=== PATIENT | female | born 1950 | race Caucasian/White ===

== ENCOUNTER → 2017-01-15 | Outpatient (CLI) | payer MEDICARE ==
--- NOTE | 2017-01-15 14:01 | BD ---
EXAMINATION TYPE: MG DEXA axial skeleton. DATE OF EXAM: 01/15/2017 CLINICAL HISTORY: Height: 65.25 Weight: 135 FRAX RISK QUESTIONS: Alcohol (3 or more units per day): no Family History (Parent hip fracture): no Glucocorticoids (More than 3mos): no (Ex: prednisone, prednisolone, methylprednisolone, dexamethasone, and hydrocortisone). History of Fracture in Adulthood: yes, wrists & left pelvis Secondary Osteoporosis: 1. Type 1 Diabetes: no 2. Hyperthyroidism: no 3. Menopause before 45: no 4. Malnutrition: no 5. Chronic liver disease: no Rheumatoid Arthritis: no Current Tobacco Use: no RISK FACTORS HISTORY OF: History of Wrist Fracture: yes both, at different times When: 2010 was last wrist fx Family History of Osteoporosis: no Active: yes Diet low in dairy products/other sources of calcium: no Postmenopausal woman: yes Take estrogen and/or progesterone medications: not now How long: hormonal contraceptives for about 14 years Lost more than 2 inches in height since high school: no Frequent falls: no Poor Health: no Hyperparathyroidism: no Adrenal Insufficiency: no MEDICATIONS: Prednisone or other steroids: no Thyroid Medications: no Osteoporosis Medications: not now Which medication: perhaps Fosamax How Long: about one month Additional Medications: calcium & vitamin EXAM MEASUREMENTS: Bone mineral densitometry was performed using the [employer]. Bone mineral density as measured about the Lumbar spine is: ----- L1-L4(G/cm2): 1.170 T Score Values are as follows: ----- L2: -1.0 ----- L3: 0.1 ----- L4: 0.7 ----- L1-L4: -0.1 Bone mineral density has: Decreased -2.5% since study of: 01/10/2015 Bone mineral density about the R hip (g/cm2): 0.735 Bone mineral density about the L hip (g/cm2): 0.821 T Score values are as follows: -----R Neck: -2.2 -----L Neck: -1.6 -----R Total: -3.1 -----L Total: -2.2 Bone mineral density has: Decreased -1.3% since study of: 01/10/2015 IMPRESSION: Osteoporosis (T Score less than -2.5) as noted by T Score values at the There is increased fracture risk and therapy is usually indicated based on age. Re-Screen 1-2 years. NOTE: T-SCORE=SD OF THE YOUNG ADULT MEAN.
--- NOTE | 2017-01-16 09:18 | MM ---
Reason for exam: screening (asymptomatic). Last mammogram was performed 1 year ago. History: Patient is postmenopausal, has history of other cancer at age 59, and is nulliparous. Family history of breast cancer in 2 maternal aunts and breast cancer in mother at age 50. Benign left mammotome panel of the left breast, January 08, 2011. Benign stereotactic core biopsy of the right breast, March 01, 2004. Excisional biopsy of the right breast, 1979. Took hormonal contraceptives for 14 years beginning at age 19. Physical Findings: A clinical breast exam by your physician is recommended on an annual basis and results should be correlated with mammographic findings. MG 3D Screening Mammo W/Cad Bilateral CC and MLO view(s) were taken. Prior study comparison: January 13, 2016, bilateral MG 3d screening mammo w/cad. January 10, 2015, bilateral MG screening mammo w CAD. The breast tissue is extremely dense which could obscure a lesion on mammography. Post biopsy change in the left and right breast. ASSESSMENT: Benign, BI-RAD 2 RECOMMENDATION: Routine screening mammogram of both breasts in 1 year.
== END | disposition home or self-care (01) ==
LOC: RADMAMWWP 10:12
PROVIDERS: ATTEND Obstetrics & Gynecology
DX: Z12.31 Encounter for screening mammogram for malignant neoplasm of breast (principal); Z80.3 Family history of malignant neoplasm of breast; M81.0 Age-related osteoporosis without current pathological fracture
CPT/HCPCS: 77080; 77063; G0202

== ENCOUNTER 2017-02-13 07:20 | Day surgery (SDC) | payer MEDICARE ==
[2017-02-08 12:02] VITALS: BMI 21.3
[~2017-02-13 07:20] MED LIST: LACTATED RINGERS 1,000 ML IV SCH; LIDOCAINE 1% 20 ML VIAL (10MG/ML) FOR IV START INTRADERMA PRN
[2017-02-13 07:50] VITALS: TEMP 96.4
[2017-02-13] MEDS ORDERED: PROPOFOL 10 MG/ML 20 ML VIAL IV ONE (07:52)
[2017-02-13] MEDS ORDERED: LIDOCAINE 1% INJ 10MG/ML (20 ML MDV) ONE (07:52)
--- NOTE | 2017-02-13 07:56 | P.GSHP ---
History of Present Illness H&P Date: 02/13/17 Chief Complaint: Colon cancer screening Patient here today for screening colonoscopy. Last colonoscopy 10 years ago. No bowel related complaints. No family history of colon cancer. Past Medical History Past Medical History: No Reported History History of Any Multi-Drug Resistant Organisms: None Reported Past Surgical History: Appendectomy, Breast Surgery Additional Past Surgical History / Comment(s): COLONOSCOPY. BILAT BREAST NEEDLE BIOPSY. LT BREAST BIOPSY Past Anesthesia/Blood Transfusion Reactions: Postoperative Nausea & Vomiting ( PONV) Smoking Status: Former smoker - Past Family History Mother Family Medical History: Cancer Medications and Allergies Home Medications Medication Instructions Recorded Confirmed Type Calcium Carb/Vitamin D3/Vit K1 1 tab PO DAILY 02/08/17 02/08/17 History [Citracal Soft Chew] Allergies Allergy/AdvReac Type Severity Reaction Status Date / Time No Known Allergies Allergy Verified 02/08/17 11:57 Surgical - Exam Vital Signs Temp Pulse Resp BP Pulse Ox 96.4 F L 67 14 164/72 96 02/13/17 07:48 02/13/17 07:48 02/13/17 07:48 02/13/17 07:48 02/13/17 07:48 Physical exam: General: Well-developed, well-nourished HEENT: Normocephalic, sclerae nonicteric Abdomen: Nontender, nondistended Extremities: No edema Neuro: Alert and oriented Assessment and Plan (1) Colon cancer screening Narrative/Plan: Will proceed with colonoscopy at this time. Current Visit: Yes Status: Acute Code(s): Z12.11 - ENCOUNTER FOR SCREENING FOR MALIGNANT NEOPLASM OF COLON SNOMED Code(s): 343554926
[2017-02-13 08:19] VITALS: RESP 16
[2017-02-13 08:50] VITALS: BP 128/60; PULSE 64
--- NOTE | 2017-02-13 09:05 | P.PCN ---
Date of Procedure: 02/13/17 Procedure(s) Performed: PREOPERATIVE DIAGNOSIS: Colon cancer screening POSTOPERATIVE DIAGNOSIS: Normal exam PROCEDURE: Colonoscopy ANESTHESIA: MAC SURGEON: Mina Esquivel M.D. SPECIMENS: None ENDOSCOPIC PROCEDURE: The patient was placed on the endoscopy table in the left decubitus position. The Olympus colonoscope was inserted into the anus and passed under direct visualization to the base of the cecum. The appendiceal orifice was visualized. From that point the scope was slowly withdrawn inspecting all surfaces carefully. There were no neoplastic inflammatory or polypoid lesions throughout the cecum, ascending, transverse, descending, sigmoid and rectum. There was no diverticulosis noted. Tortuosity of the colon was impressive. Digital rectal examination was normal. The patient was taken to the recovery room in stable condition per anesthesia guidelines. RECOMMENDATIONS: Increase fiber. Advise follow-up colonoscopy 10 years.
== END 2017-02-13 09:09 | disposition home or self-care (01) ==
LOC: ORWHC2ENDO 07:20
PROVIDERS: ATTEND Surgery
DX: Z12.11 Encounter for screening for malignant neoplasm of colon (principal); Q43.8 Other specified congenital malformations of intestine; Z87.891 Personal history of nicotine dependence
CPT/HCPCS: J2001; J2704; G0121; 45378

== ENCOUNTER → 2018-01-29 | Outpatient (CLI) | payer MEDICARE ==
--- NOTE | 2018-01-30 11:24 | MM ---
Reason for exam: screening (asymptomatic). Last mammogram was performed 1 year ago. History: Patient is postmenopausal, has history of other cancer at age 59, and is nulliparous. Family history of breast cancer in 2 maternal aunts and breast cancer in mother at age 50. Benign left mammotome panel of the left breast, January 08, 2011. Benign stereotactic core biopsy of the right breast, March 01, 2004. Excisional biopsy of the right breast, 1979. Took hormonal contraceptives for 14 years beginning at age 19. Physical Findings: A clinical breast exam by your physician is recommended on an annual basis and results should be correlated with mammographic findings. MG 3D Screening Mammo W/Cad Bilateral CC and MLO view(s) were taken. Prior study comparison: January 15, 2017, bilateral MG 3d screening mammo w/cad. January 13, 2016, bilateral MG 3d screening mammo w/cad. The breast tissue is extremely dense which could obscure a lesion on mammography. There is a new punctate calcification within an overall stable lower inner quadrant left breast mass. Ultrasound will be done to further assess. Benign appearing bilateral calcifications. No suspicious abnormality on the right breast. Bilateral biopsy markers noted. ASSESSMENT: Incomplete: need additional imaging evaluation, BI-RAD 0 RECOMMENDATION: Ultrasound of the left breast. (lower inner quadrant) [facility] will attempt to contact patient to return for ultrasound.
== END | disposition home or self-care (01) ==
LOC: RADMAMWWP 10:52
PROVIDERS: ATTEND Obstetrics & Gynecology
DX: Z12.31 Encounter for screening mammogram for malignant neoplasm of breast (principal); Z80.3 Family history of malignant neoplasm of breast
CPT/HCPCS: 77063; 77067

== ENCOUNTER → 2018-01-31 | Outpatient (CLI) | payer MEDICARE ==
--- NOTE | 2018-01-31 11:41 | USB ---
Reason for exam: additional evaluation requested from abnormal screening. History: Patient is postmenopausal, has history of other cancer at age 59, and is nulliparous. Family history of breast cancer in 2 maternal aunts and breast cancer in mother at age 50. Benign left mammotome panel of the left breast, January 08, 2011. Benign stereotactic core biopsy of the right breast, March 01, 2004. Excisional biopsy of the right breast, 1979. Took hormonal contraceptives for 14 years beginning at age 19. Physical Findings: Nurse did not find any significant physical abnormalities on exam. US Breast Workup Limited LT Left limited breast ultrasound including focal area of concern, retroareolar and axilla demonstrates a 0.7 x 0.6 x 0.6cm oval, solid lesion at 4 o'clock, questionable calcifications. This does not persist with harmonics and has no mammographic correlate. Possible prominent lobe. 6 month follow up recommended. These results were verbally communicated with the patient and result sheet given to the patient on 01/31/18. ASSESSMENT: Probably benign, BI-RAD 3 RECOMMENDATION: Follow-up diagnostic mammogram and ultrasound of the left breast in 6 months. (lower inner quadrant and lower outer quadrant)
--- NOTE | 2018-01-31 11:43 | MM ---
Reason for exam: additional evaluation requested from abnormal screening. Last mammogram was performed less than 1 month ago. History: Patient is postmenopausal, has history of other cancer at age 59, and is nulliparous. Family history of breast cancer in 2 maternal aunts and breast cancer in mother at age 50. Benign left mammotome panel of the left breast, January 08, 2011. Benign stereotactic core biopsy of the right breast, March 01, 2004. Excisional biopsy of the right breast, 1979. Took hormonal contraceptives for 14 years beginning at age 19. Physical Findings: Nurse did not find any significant physical abnormalities on exam. MG 3D Work Up W/Cad LT Spot compression CC, spot compression MLO, and LM view(s) were taken of the left breast. Prior study comparison: January 29, 2018, bilateral MG 3d screening mammo w/cad. January 15, 2017, bilateral MG 3d screening mammo w/cad. The breast tissue is heterogeneously dense. This may lower the sensitivity of mammography. Additional views with BB placement demonstrate no corresponding mammographic abnormality. 6 month follow up recommended for the lower inner quadrant calcification. These results were verbally communicated with the patient and result sheet given to the patient on 01/31/18. ASSESSMENT: Probably benign, BI-RAD 3 RECOMMENDATION: Follow-up diagnostic mammogram and ultrasound of the left breast in 6 months.
== END | disposition home or self-care (01) ==
LOC: RADUSWWP 09:44
PROVIDERS: ATTEND Obstetrics & Gynecology
DX: R92.8 Other abnormal and inconclusive findings on diagnostic imaging of breast (principal)
CPT/HCPCS: 77065; 76642; G0279; 77061

== ENCOUNTER → 2018-02-18 | Outpatient (CLI) | payer MEDICARE ==
--- NOTE | 2018-02-18 13:24 | US ---
EXAMINATION TYPE: US carotid duplex BILAT DATE OF EXAM: 02/18/2018 COMPARISON: NONE CLINICAL HISTORY: I65.23 Stenosis; I34.0 Non-Rheumatic valve insuffi. EXAM MEASUREMENTS: RIGHT: Peak Systolic Velocity (PSV) cm/sec ----- Right CCA: 53.6 ----- Right ICA: 58.8 ----- Right ECA: 67.6 ICA/CCA ratio: 1.1 RIGHT: End Diastole cm/sec ----- Right CCA: 10.9 ----- Right ICA: 20.8 ----- Right ECA: 0.0 LEFT: Peak Systolic Velocity (PSV) cm/sec ----- Left CCA: 59.6 ----- Left ICA: 92.7 ----- Left ECA: 66.8 ICA/CCA ratio: 1.1 LEFT: End Diastole cm/sec ----- Left CCA: 16.1 ----- Left ICA: 30.8 ----- Left ECA: 8.4 VERTEBRALS (direction of flow): Right Vertebral: Antegrade Left Vertebral: Antegrade Rhythm: Normal Mild plaque, no significant velocity elevations. IMPRESSION: There is mild peripheral plaque without significant stenosis seen in either internal car otid artery. Criteria for Assigning % of Stenosis / Diameter reduction (Estimation based on the indirect measurements of the internal carotid artery velocities (ICA PSV). 1. Normal (no stenosis)=ICA PSV < 125 cm/s: ratio < 2.0: ICA EDV<40 cm/s. 2. Less than 50% stenosis=ICA PSV < 125 cm/s: ratio < 2.0: ICA EDV<40 cm/s. 3. 50 to 69% stenosis=ICA PSV of 125 to 230 cm/s: ration 2.0 ? 4.0: ICA EDV 40-100 cm/s. 4. Greater than 70% stenosis to near occlusion= ICA PSV > 230 cm/s: ratio > 4.0: ICA EDV > 100 cm/s. 5. Near occlusion= ICA PSV velocities may be low or undetectable: variable ratio and ICA EDV. 6. Total occlusion=unable to detect flow.
--- NOTE | 2018-02-18 17:40 | ECHOF ---
Referral Reason:I65.23 Stenosis; I34.0 Non-Rheumatic valve insuffi MEASUREMENTS -------- HEIGHT: 167.6 cm WEIGHT: 59.0 kg BP: RVIDd: 1.8 cm (< 3.3) IVSd: 0.8 cm (0.6 - 1.1) LVIDd: 3.9 cm (3.9 - 5.3) LVPWd: 0.8 cm (0.6 - 1.1) IVSs: 1.4 cm LVIDs: 2.6 cm LVPWs: 1.4 cm LAESV Index (A-L): 24.97 ml/m Ao Diam: 2.9 cm (2.0 - 3.7) AV Cusp: 1.5 cm (1.5 - 2.6) LA Diam: 3.0 cm (2.7 - 3.8) EPSS: 0.2 cm MV E Tobi: 0.66 m/s MV DecT: 293 ms MV A Tobi: 0.84 m/s MV E/A Ratio: 0.79 RAP: 5.00 mmHg RVSP: 18.03 mmHg MV EF SLOPE: 101.53 mm/s (70 - 150) MV EXCURSION: 1.77 cm (> 18.000) FINDINGS -------- Sinus rhythm. This was a technically good study. The left ventricular size is normal. Left ventricular wall thickness is normal. Overall left vent ricular systolic function is normal with, an EF between 55 - 60 %. The right ventricle is normal in size and function. Normal LA size by volume 22+/-6 ml/m2. The right atrium is normal in size. Aortic valve is trileaflet and is mildly thickened. There is no evidence of aortic regurgitation. There is no evidence of aortic stenosis. The mitral valve leaflets are mildly thickened. [id number] mitral regurgitation is present. P osteriorMiotral valve prolapse noted Trace tricuspid regurgitation present. Right ventricular systolic pressure is normal at < 35 mmHg. There is no evidence of pulmonary hypertension. The pulmonic valve was not well visualized. The aortic root size is normal. Normal inferior vena cava with normal inspiratory collapse consistent with estimated right atrial pre ssure of 5 mmHg. There is no pericardial effusion. CONCLUSIONS -------- 1. posterior mitral valve prolapse 2. This was a technically good study. 3. The left ventricular size is normal. 4. Left ventricular wall thickness is normal. 5. Overall left ventricular systolic function is normal with, an EF between 55 - 60 %. 6. Normal LA size by volume 22+/-6 ml/m2. 7. Aortic valve is trileaflet and is mildly thickened. 8. The mitral valve leaflets are mildly thickened. 9. [id number] mitral regurgitation is present. PosteriorMiotral valve prolapse noted 10. Trace tricuspid regurgitation present. 11. Right ventricular systolic pressure is normal at < 35 mmHg. 12. There is no evidence of pulmonary hypertension. 13. The pulmonic valve was not well visualized. 14. The aortic root size is normal. 15. There is no pericardial effusion. EQUIPMENT DETAILER: Julio Cesar Coburn RDCS
== END | disposition home or self-care (01) ==
LOC: RADECHMAIN 11:23
PROVIDERS: ATTEND Internal Medicine
DX: I08.0 Rheumatic disorders of both mitral and aortic valves (principal); I65.23 Occlusion and stenosis of bilateral carotid arteries
CPT/HCPCS: 93306; 93880

== ENCOUNTER → 2018-02-20 | Outpatient (CLI) | payer MEDICARE ==
[2018-02-20 09:02] LABS: Basophils # (A) 0.1 k/uL (0-0.2); Basophils % (A) 2 %; Eosinophils # (A) 0.1 k/uL (0-0.7); Eosinophils % (A) 3 %; HCT 43.1 % (34.0-46.0); HGB 13.9 gm/dL (11.4-16.0); Lymphocytes # (A) 1.4 k/uL (1.0-4.8); Lymphocytes % (A) 35 %; MCH 29.6 pg (25.0-35.0); MCHC 32.2 g/dL (31.0-37.0); Monocytes # (A) 0.3 k/uL (0-1.0); Monocytes % (A) 8 %; Neutrophils % (A) 50 %; Platelet Count 281 k/uL (150-450); RBC 4.69 m/uL (3.80-5.40); RDW 12.6 % (11.5-15.5)
[2018-02-20 09:06] LABS: Appearance,Urine Clear (Clear); Bilirubin,Urine Negative (Negative); Blood,Urine Trace (Negative); Color,Urine Yellow; Glucose,Urine (UA) Negative (Negative); Ketones,Urine Negative (Negative); Leukocyte Esterase,Urine Negative (Negative); Mucus,Urine Occasional /hpf; Nitrite,Urine Negative (Negative); PH, Urine 5.5 (5.0-8.0); Protein,Urine Negative (Negative); RBC,Urine 2 /hpf (0-5); Specific Gravity,Urine 1.014 (1.001-1.035); Squamous Epithelial Cell,Urine <1 /hpf (0-4); Urobilinogen,Urine <2.0 mg/dL (<2.0); WBC,Urine 1 /hpf (0-5)
[2018-02-20 19:09] LABS: T4, Free (Free Thyroxine) 1.3 ng/dL (0.80-1.80)
[2018-02-20 19:16] LABS: Albumin 4.2 g/dL (3.80-4.90); Albumin/Globulin Ratio 2.1 (1.20-2.10); Anion Gap 8.2 mmol/L (4.00-12.00); Calcium 9.5 mg/dL (8.7-10.3); Carbon Dioxide 27.8 mmol/L (21.6-31.8); LDL Cholesterol,Calculated 102.8 mg/dL (0.0-131.0); Potassium 4.2 mmol/L (3.5-5.5); Total Bilirubin 0.5 mg/dL (0.2-1.2); Total Protein 6.2 g/dL (6.2-8.2); Uric Acid 4.3 mg/dL (2.9-7.7); VLDL Calculation 10.2 mg/dL (5.00-40.00)
== END | disposition home or self-care (01) ==
LOC: LABWHC1 07:54
PROVIDERS: ATTEND Internal Medicine
DX: E78.00 Pure hypercholesterolemia, unspecified (principal); D12.6 Benign neoplasm of colon, unspecified; M89.9 Disorder of bone, unspecified
CPT/HCPCS: 36415; 80053; 80061; 81001; 82306; 82550; 84439; 84443; 84550; 85025

== ENCOUNTER → 2018-04-25 | Outpatient (CLI) | payer MEDICARE ==
[2018-04-25 10:03] LABS: Basophils # (A) 0.1 k/uL (0-0.2); Basophils % (A) 2 %; Eosinophils # (A) 0.2 k/uL (0-0.7); Eosinophils % (A) 4 %; HCT 43.5 % (34.0-46.0); HGB 14.6 gm/dL (11.4-16.0); Lymphocytes # (A) 1.8 k/uL (1.0-4.8); Lymphocytes % (A) 35 %; MCH 30.9 pg (25.0-35.0); MCHC 33.6 g/dL (31.0-37.0); MCV 92.1 fL (80.0-100.0); Mean Platelet Volume 6.8; Monocytes # (A) 0.3 k/uL (0-1.0); Monocytes % (A) 7 %; Neutrophils # (A) 2.5 k/uL (1.3-7.7); Neutrophils % (A) 50 %; Platelet Count 272 k/uL (150-450); RBC 4.73 m/uL (3.80-5.40); RDW 12.4 % (11.5-15.5); WBC 5.1 k/uL (3.8-10.6)
[2018-04-25 11:21] LABS: Erythrocyte Sedimentation Rate 7 mm/hr (0-20)
[2018-04-25 17:45] LABS: Iron Saturation 33.11 (12.00-45.00)
[2018-04-25 17:51] LABS: Albumin 4.3 g/dL (3.80-4.90); Albumin/Globulin Ratio 2.05 (1.20-2.10); Anion Gap 8.1 mmol/L (4.00-12.00); Calcium 9.4 mg/dL (8.7-10.3); Carbon Dioxide 29.9 mmol/L (21.6-31.8); Globulin 2.1 g/dL (1.6-3.3); Potassium 4.9 mmol/L (3.5-5.5); Total Bilirubin 0.6 mg/dL (0.2-1.2); Total Protein 6.4 g/dL (6.2-8.2)
[2018-04-25 17:59] LABS: T4, Free (Free Thyroxine) 1.3 ng/dL (0.80-1.80)
[2018-04-25 18:30] LABS: Folate, Serum >24.0 ng/mL
== END | disposition home or self-care (01) ==
LOC: LABWHC1 08:35
PROVIDERS: ATTEND Internal Medicine
DX: R53.81 Other malaise (principal)
CPT/HCPCS: 36415; 80053; 82533; 82607; 82728; 82746; 83540; 83550; 84439; 84443; 85025; 85652

== ENCOUNTER → 2018-04-28 | Day surgery (SDC) | payer MEDICARE ==
[2018-04-23 15:30] VITALS: BMI 21.3
[~2018-04-28] MED LIST changes: -LACTATED RINGERS 1,000 ML IV SCH; -LIDOCAINE 1% 20 ML VIAL (10MG/ML) FOR IV START INTRADERMA PRN; +MIDAZOLAM 2 MG/2 ML VIAL IV ONE; +SODIUM CHLORIDE 0.9% 1,000 ML IV ONE; +fentaNYL (PF) 50 MCG/ML 2 ML AMP ONE
[2018-04-28] MEDS: BENZOCAINE SPRAY 1 CAN MUCOUS MEM ONE ×2 (07:20→07:30)
[2018-04-28] MEDS: fentaNYL (PF) 50 MCG/ML 2 ML AMP IV ONE ×2 (07:30→07:38)
[2018-04-28 07:35] VITALS: RESP 16
--- NOTE | 2018-04-28 08:13 | ECHOT ---
TRANSESOPHAGEAL ECHOCARDIOGRAM DATE OF SERVICE: April 28, 2018 PERFORMING PHYSICIAN: Robert Riojas MD, irrigator head. PROCEDURE PERFORMED: Transesophageal echocardiogram. INDICATION: This is a 67-year-old female patient who underwent recently an echo in the office and that showed moderate to severe MR. A transesophageal echocardiogram is for further clarification of the severity of the MR. COMPLICATION: None. LEVEL OF SEDATION: Moderate with sedation length of 16 minutes. PROCEDURE DESCRIPTION: After obtaining an informed consent, explaining the procedure, benefits, risks, complications and alternatives, the patient was brought to the transesophageal echocardiogram suite. A pulse oximetry and heart rate monitors were attached to the patient prior to the procedure. The patient's throat was sprayed using lidocaine locally. Following that, the patient was turned into left lateral position. A bite guard was placed and the patient was then sedated with the above doses of Versed and fentanyl in divided doses. Following that, the transesophageal echocardiogram probe was advanced through the bite guard into the mid esophagus where 2-D echocardiogram images as well as color Doppler images of various cardiac structures were obtained. We evaluated the interatrial septum using 2-D echocardiogram, color Doppler, and contrast study. The procedure was completed. There were no complications. FINDINGS: The left ventricular dimension and systolic function appeared to be within normal limits. The ejection fraction appeared to be in the range of 55%. The right ventricle is of normal size and function. The left atrium appeared to be within normal limits for dimension. The left atrial appendage appeared to be free from any thrombus. The interatrial septum appeared to be intact. The aortic valve is trileaflet valve without stenosis or regurgitation. The mitral valve seems to be normal with evidence of only moderate MR. There was normal tricuspid valve and pulmonic valve. CONCLUSION: 1. Normal left ventricular dimension and systolic function. 2. Normal cardiac chamber sizes. 3. Moderate mitral regurgitation. 4. Trileaflet aortic valve without stenosis or regurgitation. 5. Normal tricuspid valve and pulmonic valve. 6. Intact interatrial septum without any evidence of shunt. 7. Normal aortic root dimension. 8. No evidence of pericardial effusion. MMODL / IJN: [id number] /
[2018-04-28 08:44] VITALS: TEMP 97.8
[2018-04-28 08:53] VITALS: BP 125/58; PULSE 54
== END | disposition home or self-care (01) ==
LOC: CATHCVL 06:10
PROVIDERS: ATTEND Internal Medicine Interventional Cardiology
DX: I34.0 Nonrheumatic mitral (valve) insufficiency (principal); I34.1 Nonrheumatic mitral (valve) prolapse; R94.31 Abnormal electrocardiogram [ECG] [EKG]; Z72.0 Tobacco use
CPT/HCPCS: 93312; 93325; J2250; J3010; 93320

== ENCOUNTER → 2018-09-10 | Outpatient (CLI) | payer MEDICARE ==
--- NOTE | 2018-09-10 10:11 | MM ---
Reason for exam: follow-up at short interval from prior study. Last mammogram was performed 7 months ago. History: Patient is postmenopausal, has history of other cancer at age 59, and is nulliparous. Family history of breast cancer in 2 maternal aunts and breast cancer in mother at age 50. Benign left mammotome panel of the left breast, January 08, 2011. Benign stereotactic core biopsy of the right breast, March 01, 2004. Excisional biopsy of the right breast, 1979. Took hormonal contraceptives for 14 years beginning at age 19. Physical Findings: Nurse did not find any significant physical abnormalities on exam. MG 3D Diag Mammo W/Cad LT CC and MLO view(s) were taken of the left breast. Prior study comparison: January 31, 2018, left breast MG 3d work up w/cad LT. January 29, 2018, bilateral MG 3d screening mammo w/cad. The breast tissue is extremely dense which could obscure a lesion on mammography. Stable benign calcifications. There is no discrete abnormality. No significant new findings when compared with previous films. These results were verbally communicated with the patient and result sheet given to the patient on 09/10/18. ASSESSMENT: Incomplete: need additional imaging evaluation, BI-RAD 0 RECOMMENDATION: Ultrasound of the left breast.
--- NOTE | 2018-09-10 10:12 | USB ---
Reason for exam: follow-up at short interval from prior study. History: Patient is postmenopausal, has history of other cancer at age 59, and is nulliparous. Family history of breast cancer in 2 maternal aunts and breast cancer in mother at age 50. Benign left mammotome panel of the left breast, January 08, 2011. Benign stereotactic core biopsy of the right breast, March 01, 2004. Excisional biopsy of the right breast, 1979. Took hormonal contraceptives for 14 years beginning at age 19. US Breast Limited LT Left limited breast ultrasound including focal area of concern, retroareolar and axilla demonstrates no cystic or solid lesion seen. These results were verbally communicated with the patient and result sheet given to the patient on 09/10/18. ASSESSMENT: Probably benign, BI-RAD 3 RECOMMENDATION: Follow-up diagnostic mammogram of both breasts in 6 months. Ultrasound of the left breast in 6 months.
== END | disposition home or self-care (01) ==
LOC: RADMAMWWP 08:50
PROVIDERS: ATTEND Obstetrics & Gynecology
DX: R92.8 Other abnormal and inconclusive findings on diagnostic imaging of breast (principal)
CPT/HCPCS: 77065; 76642; G0279; 77061

== ENCOUNTER → 2019-02-02 | Outpatient (CLI) | payer MEDICARE ==
--- NOTE | 2019-02-02 11:42 | MM ---
Reason for exam: follow-up at short interval from prior study. Last mammogram was performed 5 months ago. History: Patient is postmenopausal, has history of other cancer at age 59, and is nulliparous. Family history of breast cancer in 2 maternal aunts and breast cancer in mother at age 50. Benign left mammotome panel of the left breast, January 08, 2011. Benign stereotactic core biopsy of the right breast, March 01, 2004. Excisional biopsy of the right breast, 1979. Took hormonal contraceptives for 14 years beginning at age 19. Physical Findings: Nurse did not find any significant physical abnormalities on exam. MG 3D Diag Mammo W/Cad YAMIL Bilateral CC and MLO view(s) were taken. Prior study comparison: September 10, 2018, left breast MG 3d diag mammo w/cad LT. January 31, 2018, left breast MG 3d work up w/cad LT. The breast tissue is heterogeneously dense. This may lower the sensitivity of mammography. Previous mammotome biopsy in the right and left breast. No significant new findings when compared with previous films. These results were verbally communicated with the patient and result sheet given to the patient on 02/02/19. ASSESSMENT: Incomplete: need additional imaging evaluation, BI-RAD 0 RECOMMENDATION: Ultrasound of the left breast. (as ordered)
--- NOTE | 2019-02-02 11:43 | USB ---
Reason for exam: follow-up at short interval from prior study. History: Patient is postmenopausal, has history of other cancer at age 59, and is nulliparous. Family history of breast cancer in 2 maternal aunts and breast cancer in mother at age 50. Benign left mammotome panel of the left breast, January 08, 2011. Benign stereotactic core biopsy of the right breast, March 01, 2004. Excisional biopsy of the right breast, 1979. Took hormonal contraceptives for 14 years beginning at age 19. US Breast Limited LT Left limited breast ultrasound including focal area of concern, retroareolar and axilla demonstrates no cystic or solid lesion seen. Scanned 3-9 o'clock. Annual exam can be performed is diagnostic exam. These results were verbally communicated with the patient and result sheet given to the patient on 02/02/19. ASSESSMENT: Probably benign, BI-RAD 3 RECOMMENDATION: Follow-up diagnostic mammogram of both breasts in 1 year.
--- NOTE | 2019-02-02 17:43 | BD ---
EXAMINATION TYPE: Axial Bone Density DATE OF EXAM: 02/02/2019 COMPARISON: 2017 CLINICAL HISTORY: 68-year-old female postmenopausal screening Height: 65.25 Weight: 130 FRAX RISK QUESTIONS: Alcohol (3 or more units per day): no Family History (Parent hip fracture): yes, mother Glucocorticoids (More than 3mos): no (Ex: prednisone, prednisolone, methylprednisolone, dexamethasone, and hydrocortisone). History of Fracture in Adulthood: yes Secondary Osteoporosis: 1. Type 1 Diabetes: no 2. Hyperthyroidism: no 3. Menopause before 45: no 4. Malnutrition: no 5. Chronic liver disease: no Rheumatoid Arthritis: no Current Tobacco Use: no RISK FACTORS HISTORY OF: History of Wrist Fracture: yes When: >49 Family History of Osteoporosis: unknown Active: yes Diet low in dairy products/other sources of calcium: at least one serving a day, or sometimes more Postmenopausal woman: yes Take estrogen and/or progesterone medications: not now Hormonal contraceptives about 14 years Lost more than 2 inches in height since high school: no Frequent falls: no Poor Health: no Hyperparathyroidism: no Adrenal Insufficiency: no MEDICATIONS: Prednisone or other steroids: no Thyroid Medications: no Osteoporosis Medications: not now Which medication: Fosamax How Long: about one month Additional Medications: calcium & Vitamin D Additional History: EXAM MEASUREMENTS: Bone mineral densitometry was performed using the [employer]. Bone mineral density as measured about the Lumbar spine is: ----- L1-L4(G/cm2): 1.206 T Score Values are as follows: ----- L2: -0.8 ----- L3: 0.8 ----- L4: 1.1 ----- L1-L4: 0.2 Bone mineral density has: Increased 3.7% since study of: 01/15/2017 Bone mineral density about the R hip (g/cm2): 0.660 Bone mineral density about the L hip (g/cm2): 0.811` T Score values are as follows: -----R Neck: -2.7 -----L Neck: -1.6 -----R Total: -3.5 -----L Total: -2.2 Bone mineral density has: Decreased -4.4% since study of: 01/15/2017 IMPRESSION: Osteoporosis (T Score less than -2.5). There is increased fracture risk and therapy is usually indicated based on age. Re-Screen 1-2 years. NOTE: T-SCORE=SD OF THE YOUNG ADULT MEAN.
== END ==
LOC: RADMAMWWP 08:18
PROVIDERS: ATTEND Obstetrics & Gynecology
DX: R92.8 Other abnormal and inconclusive findings on diagnostic imaging of breast (principal); M81.0 Age-related osteoporosis without current pathological fracture
CPT/HCPCS: 77080; 77066; 76642; G0279; 77062

== ENCOUNTER → 2020-02-04 | Outpatient (CLI) | payer MEDICARE ==
[2020-02-04 11:10] LABS: Basophils # (A) 0.1 k/uL (0-0.2); Basophils % (A) 2 %; Eosinophils # (A) 0.2 k/uL (0-0.7); Eosinophils % (A) 3 %; HCT 44.3 % (34.0-46.0); HGB 14.1 gm/dL (11.4-16.0); Lymphocytes # (A) 1.8 k/uL (1.0-4.8); Lymphocytes % (A) 34 %; MCH 29.9 pg (25.0-35.0); MCHC 31.9 g/dL (31.0-37.0); MCV 93.7 fL (80.0-100.0); Mean Platelet Volume 7.1; Monocytes # (A) 0.4 k/uL (0-1.0); Monocytes % (A) 7 %; Neutrophils # (A) 2.8 k/uL (1.3-7.7); Neutrophils % (A) 52 %; Platelet Count 290 k/uL (150-450); RBC 4.72 m/uL (3.80-5.40); RDW 12.7 % (11.5-15.5); WBC 5.3 k/uL (3.8-10.6)
[2020-02-04 20:18] LABS: African American GFR (CKD) 101.7 (60.0-200.0); Albumin 4.3 g/dL (3.80-4.90); Albumin/Globulin Ratio 1.87 (1.60-3.17); Anion Gap 7.9 mmol/L (4.00-12.00); BUN/Creat Ratio 21.43 Ratio (12.00-20.00); Calcium 9.6 mg/dL (8.7-10.3); Carbon Dioxide 28.1 mmol/L (21.6-31.8); Chol/HDL Ratio 2.36; Globulin 2.3 g/dL (1.6-3.3); LDL Cholesterol,Calculated 117.6 mg/dL (0.0-131.0); Non-African American GFR(CKD) 87.8 (60.0-200.0); Potassium 4.2 mmol/L (3.5-5.5); Total Bilirubin 0.6 mg/dL (0.2-1.2); Total Protein 6.6 g/dL (6.2-8.2); VLDL Calculation 11.4 mg/dL (5.00-40.00)
== END | disposition home or self-care (01) ==
LOC: LABWHC1 10:06
PROVIDERS: ATTEND Internal Medicine
DX: Z00.00 Encounter for general adult medical examination without abnormal findings (principal)
CPT/HCPCS: 36415; 80053; 80061; 84443; 85025

== ENCOUNTER → 2020-03-17 | Outpatient (CLI) | payer MEDICARE ==
--- NOTE | 2020-03-18 12:14 | MM ---
Reason for exam: additional evaluation requested from prior study. Last mammogram was performed 1 year and 1 month ago. History: Patient is postmenopausal, has history of other cancer at age 59, and is nulliparous. Family history of breast cancer in 2 maternal aunts and breast cancer in mother at age 50. Benign left mammotome panel of the left breast, January 08, 2011. Benign stereotactic core biopsy of the right breast, March 01, 2004. Excisional biopsy of the right breast, 1979. Took hormonal contraceptives for 14 years beginning at age 19. Physical Findings: Nurse did not find any significant physical abnormalities on exam. MG 3D Diag Mammo W/Cad YAMIL Bilateral CC and MLO view(s) were taken. Prior study comparison: February 02, 2019, bilateral MG 3d diag mammo w/cad YAMIL. September 10, 2018, left breast MG 3d diag mammo w/cad LT. January 29, 2018, bilateral MG 3d screening mammo w/cad. January 13, 2016, bilateral MG 3d screening mammo w/cad. The breast tissue is heterogeneously dense. This may lower the sensitivity of mammography. Previous mammotome biopsy in the left breast. Benign oil cyst calcifications on the left. Fluctuating asymmetric densities right CC view central posterior and medially, 6 month follow up recommended. These results were verbally communicated with the patient and result sheet given to the patient on 03/17/20. ASSESSMENT: Probably benign, BI-RAD 3 RECOMMENDATION: Follow-up diagnostic mammogram of the right breast in 6 months.
== END | disposition home or self-care (01) ==
LOC: RADMAMWWP 03-02 12:48
PROVIDERS: ATTEND Obstetrics & Gynecology
DX: R92.8 Other abnormal and inconclusive findings on diagnostic imaging of breast (principal)
CPT/HCPCS: 77066; G0279; 77062

== ENCOUNTER → 2020-07-15 | Outpatient (CLI) | payer MEDICARE ==
[2020-07-15 13:51] LABS: HGB 13.8 gm/dL (11.4-16.0); MCH 31.1 pg (25.0-35.0); MCHC 34.6 g/dL (31.0-37.0); Mean Platelet Volume 7.1; Platelet Count 258 k/uL (150-450); RBC 4.44 m/uL (3.80-5.40); RDW 12.3 % (11.5-15.5); WBC 8.1 k/uL (3.8-10.6)
[2020-07-15 13:53] LABS: Appearance,Urine Clear (Clear); Bilirubin,Urine Negative (Negative); Blood,Urine Negative (Negative); Color,Urine Colorless; Glucose,Urine (UA) Negative (Negative); Ketones,Urine Negative (Negative); Leukocyte Esterase,Urine Negative (Negative); Nitrite,Urine Negative (Negative); Partial Thromboplastin Time 23.3 sec (22.0-30.0); Protein,Urine Negative (Negative); Prothrombin Time 10.9 sec (9.0-12.0); Specific Gravity,Urine 1.003 (1.001-1.035); Urobilinogen,Urine <2.0 mg/dL (<2.0)
[2020-07-15 14:01] LABS: ALT 16 U/L (4-34); AST 31 U/L (14-36); African American GFR (CKD) >90 (>60 ml/min/1.73 sqM); Albumin 4.6 g/dL (3.5-5.0); Alkaline Phosphatase 81 U/L (38-126); Anion Gap 8 mmol/L; Blood Urea Nitrogen 11 mg/dL (7-17); Calcium 9.7 mg/dL (8.4-10.2); Carbon Dioxide 25 mmol/L (22-30); Chloride 100 mmol/L (98-107); Glucose 90 mg/dL (74-99); Non-African American GFR(CKD) >90 (>60 ml/min/1.73 sqM); Potassium 4.5 mmol/L (3.5-5.1); Sodium 133 mmol/L (137-145); Total Bilirubin 0.7 mg/dL (0.2-1.3); Total Protein 7.4 g/dL (6.3-8.2)
== END | disposition home or self-care (01) ==
LOC: LABWHC1 12:50
PROVIDERS: ATTEND Orthopaedic Surgery
DX: Z01.818 Encounter for other preprocedural examination (principal); Z01.812 Encounter for preprocedural laboratory examination; M16.11 Unilateral primary osteoarthritis, right hip; Z79.01 Long term (current) use of anticoagulants
CPT/HCPCS: 36415; 80053; 81003; 85027; 85610; 85730; 87070

== ENCOUNTER 2020-07-25 05:34 | Day surgery (SDC) | payer MEDICARE ==
[2020-07-18 11:31] VITALS: BMI 21.6
[~2020-07-25 05:34] MED LIST changes: +ACETAMINOPHEN TAB 500 MG TAB PO PRN; +DEXAMETHASONE SOD PHOSPHATE 4 MG/ML 1 ML VIAL IV ONE; +GABAPENTIN 300 MG CAP PO PRN; +HYDROmorphone 0.5 MG/0.5 ML SYRINGE IVP PRN; +LACTATED RINGERS 1,000 ML IV SCH; +LIDOCAINE 1% (10MG/ML) FOR IV START INTRADERMA PRN; +MELOXICAM 7.5 MG TAB PO PRN; -MIDAZOLAM 2 MG/2 ML VIAL IV ONE; +MIDAZOLAM 2 MG/2 ML VIAL IV PRN; +ONDANSETRON 4 MG/2 ML VIAL IVP ONE; +ROPIVACAINE/EPI/CLONIDINE/KET 50 ML SYRINGE MISCELLANE PRN; -SODIUM CHLORIDE 0.9% 1,000 ML IV ONE; +TRANEXAMIC ACID 1,000 MG in SODIUM CHLORIDE 0.9% 100 ML IVPB PRN; -fentaNYL (PF) 50 MCG/ML 2 ML AMP ONE
[2020-07-25] MEDS ORDERED: ePHEDrine SULFATE/0.9% NACL/PF 50 MG/5 ML SYRINGE IV ONE (06:53)
[2020-07-25] MEDS ORDERED: fentaNYL (PF) 50 MCG/ML 2 ML AMP ONE (06:53)
[2020-07-25] MEDS ORDERED: NEOSTIGMINE 1 MG/ML 10 ML VIAL ONE (06:53)
[2020-07-25] MEDS ORDERED: HYDROmorphone (PF) 1 MG/ML ONE (06:53)
[2020-07-25] MEDS ORDERED: ROCURONIUM 10 MG/ML (5 ML VIAL) IV ONE (06:53)
[2020-07-25] MEDS ORDERED: WATER FOR INJECTION, STERILE 10 ML VIAL IV ONE (06:53)
[2020-07-25] MEDS ORDERED: HEPARIN SODIUM,PORCINE 10,000 UNIT/ML 1 ML VIAL ONE (06:53)
[2020-07-25] MEDS ORDERED: SODIUM CHLORIDE 0.9% IRRIG 1,000 ML BTL IRRIGATION ONE (06:53)
[2020-07-25] MEDS ORDERED: PROPOFOL 10 MG/ML 20 ML VIAL IV ONE (06:53)
[2020-07-25] MEDS ORDERED: SUCCINYLCHOLINE CHLORIDE 100 MG/5 ML SYR IV ONE (06:53)
[2020-07-25] MEDS ORDERED: LIDOCAINE 1% INJ 10MG/ML (20 ML MDV) ONE (06:53)
[2020-07-25] MEDS ORDERED: SODIUM CHLORIDE 0.9% 100 ML BAG ONE (06:53)
[2020-07-25] MEDS ORDERED: GLYCOPYRROLATE 0.2 MG/ML 2 ML VIAL ONE (06:53)
[2020-07-25] MEDS ORDERED: TRANEXAMIC ACID 1,000 MG/10 ML VIAL ONE (06:53)
--- NOTE | 2020-07-25 08:14 | P.OP ---
Date of Procedure: 07/25/20 Preoperative Diagnosis: Severe osteoarthritis right hip Postoperative Diagnosis: Severe osteoarthritis right hip Procedure(s) Performed: Right total hip arthroplasty direct anterior approach Implants: [employer] Polarstem standard size 3 [employer] R3, 3 hole hemispherical acetabular shell, 48 mm [employer] Reflection 6.5 mm cancellus screw, 20 mm 2 [employer] R3, XLPE 20 acetabular liner [employer] Oxinium femoral head 32 m, +0 All components were press-fit. The articulation is Oxinium on polyethylene. Anesthesia: GETA Surgeon: Steve Fu [employer] [facility]1: Debbie Ortiz Estimated Blood Loss (ml): 120 (62 mL returned with Cell Saver) Pathology: other (Femoral head) Condition: stable Disposition: PACU Indications for Procedure: After failure of conservative treatment we discussed the surgical and nonsurgical treatment options at length. Patient wishes to proceed with a total hip arthroplasty with a direct anterior approach. Complications specific to this procedure were discussed at length, including but not limited to infection, leg length discrepancy, dislocation, nerve injury, and fracture. Covid-19 was also discussed at length with the patient, and they are aware of the current policies and procedures. The patient was given the option of delaying surgery, but they elect to proceed knowing these risks. Patient is aware of all these complications and informed consent was obtained Operative Findings: The operative findings are consistent with severe osteoarthritis of the right hip Description of Procedure: Patient was seen and evaluated in the preoperative area and the consent was reviewed. The operative site was marked with a skin marker. The patient was then brought to the operating room and given preoperative antibiotics intravenously. 1 g of Tranexamic acid was also given intravenously. A general anesthetic was administered by the anesthesia department. The patient was then placed on the Burket table with the bony prominences well-padded. The hip area was then prepped with a ChloraPrep solution and draped in the usual sterile fashion. A universal timeout was then performed, which confirmed the patient's name, surgical site, ALLERGIES, and procedure being performed on the consent. Next the incision site was located at 1 cm distal to the anterior superior iliac spine along the flexion crease of the hip. The skin and subcutaneous tissues were sharply incised. Incision was carefully dissected down to the fascia overlying the tensor fascia graciela muscle. This fascia was then incised in line with the incision. Care was taken to stay laterally in order to avoid injuring the lateral femoral cutaneous nerve. Next, using blunt finger dissection, the tensor fascia graciela muscle was dissected off its investing fascia. The muscle was then carefully retracted laterally with a cobra retractor over the lateral neck of the femur. Next, the circumflex vessels were identified and cauterized using the AquaMantis device. The anterior hip capsule was then exposed. The capsule was then opened and an inverted T fashion. Cobra retractors were then placed intracapsularly. The retractors were maintained intracapsular throughout the procedure. The proximal femur was then visualized. A small amount of traction was placed on the leg. The femoral neck was then osteotomized appropriate level above the lesser trochanter. A small wedge of bone was then removed from the remaining femoral head. Next, using a corkscrew the femoral head was removed from the acetabulum. On gross visual inspection, the femoral head had complete loss of articular cartilage and multiple periarticular osteophytes. The femoral head was then measured. Attention was then turned to the acetabulum. The acetabulum was exposed and any remaining labrum was excised. Sequential reaming of the acetabulum was performed using fluoroscopic guidance until there was a good bed of bleeding cancellus bone. When the appropriate size was reached, a trial was then placed. The position and fit of the trial was checked with fluoroscopy. The trial was then removed. Then, using fluoroscopic guidance, the final implant was impacted at 20 of anteversion and 40 of abduction, and fully seated in the acetabulum. 2 screws were then placed in the acetabulum. Again fluoroscopy was used to check position of the screws. Next, the liner was then impacted, with a 20 elevated liner located in the anterior superior quadrant. Component locking was confirmed. Attention was then directed to the femur. With the aid of the Burket table, the femur was externally rotated to approximately 130, extended, and adducted under the opposite leg. A side hook was then placed under the proximal femur, and the side hook elevator was used to elevate the proximal femur while releasing the capsule. Retractors were then placed. A capsular release was performed, as well as a release of the conjoined tendon, which afforded excellent visualization of the proximal femur. Next, a box osteotome was used to lateralize the proximal femur. A log handling equipment operator was then used to locate the femoral canal. Sequential broaching was then performed with appropriate size which afforded excellent fixation in the proximal femur. A trial was then placed with appropriate head and neck, and the hip was gently reduced with the aid of the Burket table. Fluoroscopy was then used to check position of the components, as well as to ensure equal leg lengths. The hip was then gently dislocated and the trials were then removed. Final implants were then impacted and the hip was again reduced. Final fluoroscopic x-rays confirmed that the components were in anatomic position, as well as equal leg lengths. The hip was also taken through range of motion, and found to be stable. The hip was then copiously irrigated with antibiotic solution with pulsatile lavage. The hip was then irrigated with Irrisept solution. The soft tissues were then injected with a ropivacaine solution, which consisted of 246.25 mg of ropivacaine, 0.5 mg of epinephrine, 30 mg of Toradol, 80 g of clonidine, and 48.45 mL of sterile water, for a total of 100 mL of fluid injected. A second dose of 1 g of Tranexamic acid was also given intravenously. Any blood collected by Cell Saver was then returned to the patient at this time. The fascia was then closed with 2-0 strata fix suture. The subcutaneous tissue was closed with 3-0 Vicryl. The subcuticular tissue was closed with 3-0 strata fix suture. The skin was then closed with Exofin skin glue. After the glue and dried, and Optifoam silver impregnated dressing was applied. The patient was then transferred to the recovery room in stable condition. The automotive parts counter assistant ELIZA Aranda was required due to the complexity of surgery, and the need for skilled stylist assistant for positioning, draping, exposure, retraction, and closure of the wound.
[2020-07-25 08:27] VITALS: TEMP 97.2
[2020-07-25] MEDS ORDERED: HYDROmorphone 0.5 MG/0.5 ML SYRINGE IVP PRN ×2 (08:31)
[2020-07-25] MEDS ORDERED: ONDANSETRON 4 MG/2 ML VIAL IVP PRN (08:31)
[2020-07-25] MEDS ORDERED: NALOXONE 0.4 MG/ML 1 ML VIAL IV PRN (08:31)
[2020-07-25] MEDS ORDERED: HYDROmorphone 0.2 MG/1 ML SYRINGE IVP PRN (08:31)
[2020-07-25] MEDS ORDERED: HYDROcodone/APAP 7.5-325MG 1 EACH TAB PO PRN ×2 (08:33)
--- NOTE | 2020-07-25 08:40 | XR ---
EXAMINATION TYPE: XR Hip Limited RT, FL guidance operating room DATE OF EXAM: 07/25/2020 Comparison: 12/01/2014 Clinical History: 69-year-old female Total right hip Findings: 2 intraoperative fluoroscopic images demonstrating right hip total arthroplasty. FLUOROSCOPY Fluoroscopy time of 14 seconds was used during right hip replacement. 2 image/s document/s gissell cai. Impression: Intraoperative fluoroscopy as above.
[2020-07-25] MEDS ORDERED: SODIUM CHLORIDE 0.9% 1,000 ML IV SCH (08:45)
[2020-07-25 09:02] VITALS: RESP 16
[2020-07-25] MEDS ORDERED: LACTATED RINGERS 1,000 ML IV ONE (09:02)
--- NOTE | 2020-07-25 10:37 | XR ---
EXAMINATION TYPE: XR Hip Limited RT DATE OF EXAM: 07/25/2020 COMPARISON: NONE HISTORY: Postop TECHNIQUE: One view submitted. FINDINGS: There is postsurgical change in near anatomic alignment. There is soft tissue edema and emphysema. IMPRESSION: 1. Postoperative change. Appears in near-anatomic alignment.
[2020-07-25] MEDS ORDERED: ONDANSETRON 4 MG/2 ML VIAL IVP ONE (14:10)
[2020-07-25 14:46] VITALS: BP 135/72; PULSE 72
== END 2020-07-25 14:35 | disposition home health service (06) ==
LOC: OR 05:34
PROVIDERS: ATTEND Orthopaedic Surgery
DX: M16.11 Unilateral primary osteoarthritis, right hip (principal); M25.751 Osteophyte, right hip; I34.1 Nonrheumatic mitral (valve) prolapse; M81.0 Age-related osteoporosis without current pathological fracture; R94.31 Abnormal electrocardiogram [ECG] [EKG]; K08.89 Other specified disorders of teeth and supporting structures; Z88.5 Allergy status to narcotic agent; Z91.09 Other allergy status, other than to drugs and biological substances; Z85.828 Personal history of other malignant neoplasm of skin; Z97.3 Presence of spectacles and contact lenses; Z85.820 Personal history of malignant melanoma of skin; Z90.49 Acquired absence of other specified parts of digestive tract; Z87.891 Personal history of nicotine dependence; Z87.81 Personal history of (healed) traumatic fracture; Z79.1 Long term (current) use of non-steroidal anti-inflammatories (NSAID); Z91.89 Other specified personal risk factors, not elsewhere classified; Z82.49 Family history of ischemic heart disease and other diseases of the circulatory system
CPT/HCPCS: 97110; 97161; 86891; 73501; 27130; P9022; C1776; J2250; J1644; J1100; J2710; J0690; J2405; J2001; J3010; J1170 ×2; J0330; J2704; 86850; 86900; 86901

== ENCOUNTER → 2020-09-16 | Outpatient (CLI) | payer MEDICARE ==
--- NOTE | 2020-09-16 14:46 | MM ---
Reason for exam: follow-up at short interval from prior study. Last mammogram was performed 6 months ago. History: Patient is postmenopausal, has history of other cancer at age 59, and is nulliparous. Family history of breast cancer in maternal aunt at age 60, breast cancer in mother at age 50, and breast cancer in maternal aunt. Benign left mammotome panel of the left breast, January 08, 2011. Benign stereotactic core biopsy of the right breast, March 01, 2004. Excisional biopsy of the right breast, 1979. Took hormonal contraceptives for 14 years beginning at age 19. Physical Findings: Nurse did not find any significant physical abnormalities on exam. MG 3D Diag Mammo W/Cad RT CC and MLO view(s) were taken of the right breast. Prior study comparison: March 17, 2020, bilateral MG 3d diag mammo w/cad YAMIL. February 02, 2019, bilateral MG 3d diag mammo w/cad YAMIL. The breast tissue is heterogeneously dense. This may lower the sensitivity of mammography. Finding: There are intermediate concern, suspicious punctate, round, coarse heterogeneous calcifications in the 9 o'clock position of the right breast, 12cm from the nipple. Stable densities, no change, benign appearing. Increase in number of calcifications since March 17, 2020 and February 02, 2019. These results were verbally communicated with the patient and result sheet given to the patient on 09/16/20. ASSESSMENT: Suspicious, BI-RAD 4 RECOMMENDATION: Stereotactic core biopsy of the right breast. Called Dr. Thomason's office with mammographic findings and has scheduled an appointment for the patient for 10/27/20 at 10:[address] Esquivel. Biopsy scheduled for 09/26/20 at 10:30. PRELIMINARY REPORT CALLED AND FAXED TO DR. ESQUIVEL ON 09/16/20.
== END | disposition home or self-care (01) ==
LOC: RADMAMWWP 10:49
PROVIDERS: ATTEND Obstetrics & Gynecology
DX: R92.1 Mammographic calcification found on diagnostic imaging of breast (principal); Z78.0 Asymptomatic menopausal state; Z80.3 Family history of malignant neoplasm of breast
CPT/HCPCS: 77065; G0279; 77061

== ENCOUNTER → 2020-09-26 | Day surgery (SDC) | payer MEDICARE ==
[2020-09-26 09:34] VITALS: RESP 16; TEMP 98.5
[2020-09-26 11:41] VITALS: BP 146/76; PULSE 80
--- NOTE | 2020-09-26 13:17 | MM ---
EXAMINATION TYPE: MG stereo VAD BX RT DATE OF EXAM: 09/26/2020 COMPARISON: 09/16/2020 CLINICAL HISTORY: Right breast calcifications TECHNIQUE: Stereotactic guided core biopsy of right breast. FINDINGS: The procedure of stereotactic guided core biopsy was explained to the patient. Benefits, alternatives, and risks were discussed. An informed consent was then obtained. [facility]. Shortness pathway was lateral approach. I performed the localization and the remainder of the procedure. A vacuum assisted biopsy gun was used to obtain multiple core samples. Patient complained of pain after the fifth biopsy was performed. Additional lidocaine with epinephrine was administered via the biopsy device. No further samples were taken. Specimen radiograph demonstrated calcifications. The patient otherwise tolerated the procedure well without any immediate complication. The patient was kept in the radiology department for short stay after the procedure and then discharged home in stable condition. Targeted calcifications are identified in specimen mammogram. Post biopsy mammogram shows the clip to appear in satisfactory position relative to the targeted region of concern on the preprocedure images. IMPRESSION: SUCCESSFUL, UNCOMPLICATED STEREOTACTIC GUIDED CORE BIOPSY OF AREA OF CONCERN IN THE right BREAST, FULL PATHOLOGY RESULTS TO FOLLOW. Pathology Results: Benign RIGHT BREAST, CORE BIOPSY: Benign breast tissue with fibrocystic change and focal microcalcification. Recommendation Follow up mammogram of the right breast in 6 months. SHERYL
== END ==
LOC: RADMAMWWP 09:13
PROVIDERS: ATTEND Surgery
DX: N60.11 Diffuse cystic mastopathy of right breast (principal); R92.0 Mammographic microcalcification found on diagnostic imaging of breast; Z91.09 Other allergy status, other than to drugs and biological substances
CPT/HCPCS: 88305; 19081; A4648; J2001

== ENCOUNTER → 2021-02-09 | Outpatient (CLI) | payer MEDICARE ==
--- NOTE | 2021-02-09 11:43 | BD ---
EXAMINATION TYPE: Axial Bone Density DATE OF EXAM: 02/09/2021 COMPARISON: 02.02.2019 CLINICAL HISTORY: 70 YR OLD FEMALE .....ICD-10 CODE: Z78.0 POST JAZMYNE Height: 64.4 Weight: 134 FRAX RISK QUESTIONS: Family History (Parent hip fracture): YES History of Fracture in Adulthood: YES Current Tobacco Use: QUIT 10 YRS AGO RISK FACTORS HISTORY OF: HX OF BOTH WRISTS FX LT PELVIS AN ADULT Surgery to RT HIP REPLACEMENT 2020 Family History of Osteoporosis: YES, MOTHER WITH HIP FX Postmenopausal woman: YES, AT 54 YRS OLD Hyperparathyroidism: NO Adrenal Insufficiency: NO MEDICATIONS: Additional Medications: VIT D AND CALCIUM Additional History: HX OF THR EXAM MEASUREMENTS: Bone mineral densitometry was performed using the [employer] System. Bone mineral density as measured about the Lumbar spine is: ----- L1-L4(G/cm2): 1.211 T Score Values are as follows: ----- L1: -0.9 ----- L2: -0.4 ----- L3: 0.9 ----- L4: 1.2 ----- L1-L4: 0.3 Bone mineral density has: Increased 1.6% since study of: 02.02.2019 Bone mineral density about the L hip (g/cm2): 0.739 T Score values are as follows: -----L Neck: -1.3 -----L Total: -2.1 Bone mineral density has: Increased 1.0% since study of: 02.02.2019 FRAX%s: THERE IS A 21.9% CHANCE FOR A MAJOR OSTEOPOROTIC FX AND A 4.9% FOR HIP.......PROBABILITY F OR FX IN 10 YRS TIME IMPRESSION: Osteopenia NOTE: T-SCORE=SD OF THE YOUNG ADULT MEAN.
== END | disposition home or self-care (01) ==
LOC: RADBDWWP 09:15
PROVIDERS: ATTEND Obstetrics & Gynecology
DX: M85.89 Other specified disorders of bone density and structure, multiple sites (principal); Z78.0 Asymptomatic menopausal state
CPT/HCPCS: 77080

== ENCOUNTER → 2021-02-14 | Outpatient (CLI) | payer MEDICARE ==
--- NOTE | 2021-02-14 11:05 | MM ---
Reason for exam: additional evaluation requested from prior study. Last mammogram was performed 5 months ago. History: Patient is postmenopausal, has history of other cancer at age 59, and is nulliparous. Family history of breast cancer in maternal aunt at age 60, breast cancer in mother at age 50, and breast cancer in maternal aunt. Benign MG stereo VAD BX RT of the right breast, September 26, 2020. Benign left mammotome panel of the left breast, January 08, 2011. Benign stereotactic core biopsy of the right breast, March 01, 2004. Excisional biopsy of the right breast, 1979. Took hormonal contraceptives for 14 years beginning at age 19. Physical Findings: Nurse did not find any significant physical abnormalities on exam. MG 3D Diag Mammo W/Cad YAMIL Bilateral CC and MLO view(s) were taken. Prior study comparison: September 16, 2020, right breast MG 3d diag mammo w/cad RT. March 17, 2020, bilateral MG 3d diag mammo w/cad YAMIL. The breast tissue is extremely dense which could obscure a lesion on mammography. Finding: There are typically benign stable, fine, segmental calcifications in the outer quadrant, middle position of the right breast. Previous mammotome biopsy in the right and left breast. No significant changes in finding since September 16, 2020 and March 17, 2020. These results were verbally communicated with the patient and result sheet given to the patient on 02/14/21. ASSESSMENT: Benign, BI-RAD 2 RECOMMENDATION: Routine screening mammogram of both breasts in 1 year.
== END | disposition home or self-care (01) ==
LOC: RADMAMWWP 09:41
PROVIDERS: ATTEND Surgery
DX: R92.1 Mammographic calcification found on diagnostic imaging of breast (principal); Z80.3 Family history of malignant neoplasm of breast; Z78.0 Asymptomatic menopausal state
CPT/HCPCS: 77066; G0279; 77062

== ENCOUNTER → 2022-02-23 | Outpatient (CLI) | payer MEDICARE ==
--- NOTE | 2022-02-23 14:26 | MM ---
Reason for Exam: Follow-up at short interval from prior study. Last screening mammogram was performed 12 month(s) ago. Patient History: Menarche at age 11. Patient has no children. Postmenopausal. Other cancer, age 59. Hormonal Contraceptives, starting at age 19 for 14 years. 1979, Excisional Biopsy on the Right side. 09/26/2020, Benign Core Biopsy on the right side. 01/08/2011, Benign Core Biopsy on the left side. 03/01/2004, Benign Stereotactic Core Biopsy on the right side. Maternal aunt had breast cancer, age 60. Maternal aunt had breast cancer. Mother had breast cancer, age 50. Risk Values: Leonela 5 year model risk: 5.2%. NCI Lifetime model risk: 13.0%. Prior Study Comparison: 12/27/1993 Screening Mammogram, Unknown. 01/21/1995 Screening Mammogram, Unknown. 01/28/1996 Screening Mammogram, Unknown. 01/13/2016 Bilateral Screening Mammogram, [facility]. 01/15/2017 Bilateral Screening Mammogram, [facility]. 01/29/2018 Bilateral Screening Mammogram, [facility]. 01/31/2018 Left Diagnostic Ultrasound, [facility]. 01/31/2018 Left Diagnostic Mammogram, [facility]. 09/10/2018 Left Diagnostic Mammogram, [facility]. 09/10/2018 Left Diagnostic Ultrasound, [facility]. 02/02/2019 Bilateral Diagnostic Mammogram, [facility]. 02/02/2019 Left Diagnostic Ultrasound, [facility]. 03/17/2020 Bilateral Diagnostic Mammogram, [facility]. 09/16/2020 Right Diagnostic Mammogram, [facility]. 02/14/2021 Bilateral Diagnostic Mammogram, [facility]. Tissue Density: The breast tissue is extremely dense which could obscure a lesion on mammography. Findings: Analyzed By CAD. Stable benign calcifications seen bilaterally. No suspicious clusters seen. No evidence for distinct mass at this time. Overall Assessment: Benign, BI-RAD 2 Management: Screening Mammogram of both breasts in 1 year. A clinical breast exam by your physician is recommended on an annual basis and results should be correlated with mammographic findings. This exam should not preclude additional follow-up of suspicious palpable abnormalities. Results were given to the patient verbally at the time of exam. Electronically signed and approved by: Julian Olmstead M.D. Radiologis
== END | disposition home or self-care (01) ==
LOC: RADMAMWWP 13:01
PROVIDERS: ATTEND Obstetrics & Gynecology
DX: R92.8 Other abnormal and inconclusive findings on diagnostic imaging of breast (principal); Z78.0 Asymptomatic menopausal state; Z80.3 Family history of malignant neoplasm of breast
CPT/HCPCS: 77066; G0279; 77062

== ENCOUNTER → 2023-02-25 | Outpatient (CLI) | payer MEDICARE ==
--- NOTE | 2023-02-25 15:28 | MM ---
Reason for Exam: Additional evaluation requested from prior study. Last screening mammogram was performed 12 month(s) ago. Patient History: Menarche at age 11. Patient has no children. Postmenopausal. Hormonal Contraceptives, starting at age 19 for 14 years. 1979, Excisional Biopsy on the Right side. 09/26/2020, Benign Core Biopsy on the right side. 01/08/2011, Benign Core Biopsy on the left side. 03/01/2004, Benign Stereotactic Core Biopsy on the right side. Maternal aunt had breast cancer, age 60. Maternal aunt had breast cancer. Mother had breast cancer, age 50. Risk Values: Leonela 5 year model risk: 5.2%. NCI Lifetime model risk: 12.3%. Prior Study Comparison: 03/17/2020 Bilateral Diagnostic Mammogram, [facility]. 02/14/2021 Bilateral Diagnostic Mammogram, [facility]. 02/23/2022 Bilateral MG 3D diag mammo w/cad YAMIL, [facility]. Tissue Density: The breast tissue is heterogeneously dense. This may lower the sensitivity of mammography. Findings: Analyzed By CAD. Stable benign-appearing bilateral calcifications seen. No evidence for distortion or distinct mass. Overall Assessment: Benign, BI-RAD 2 Management: Diagnostic Mammogram of both breasts in 1 year. . Results were given to the patient verbally at the time of exam. Patient should continue monthly self-breast exams. A clinical breast exam by your physician is recommended on an annual basis. This exam should not preclude additional follow-up of suspicious palpable abnormalities. Note on Leonela scores and lifetime risk: 1. A Leonela score greater than 3% is considered moderate risk. If this is the case, consider specialist referral to assess eligibility for a risk reducing agent. 2. If overall lifetime risk for the development of breast cancer is 20% or higher, the patient may qualify for future screening with alternating mammogram and breast MRI. Electronically signed and approved by: Julian Olmstead M.D. Radiologis
--- NOTE | 2023-02-25 16:48 | BD ---
EXAMINATION TYPE: Axial Bone Density DATE OF EXAM: 02/25/2023 CLINICAL HISTORY: 72 years old Female. ICD-10 CODE: M85.88 M81.0 osteoporosis Height: 5 ft 5 in Weight: 135 FRAX RISK QUESTIONS: Alcohol (3 or more units per day): no Family History (Parent hip fracture): yes Glucocorticoids (More than 3mos): no (Ex: prednisone, prednisolone, methylprednisolone, dexamethasone, and hydrocortisone). History of Fracture in Adulthood: yes Secondary Osteoporosis: 1. Type 1 Diabetes: no 2. Hyperthyroidism: no 3. Menopause before 45: no 4. Malnutrition: no 5. Chronic liver disease: no Rheumatoid Arthritis: no Current Tobacco Use: no RISK FACTORS HISTORY OF: Surgery to Spine/Hip(right/left)/Wrist (right/left): rt hip replacement When: 2020 Family History of Osteoporosis: no Active: yes Diet low in dairy products/other sources of calcium: no Postmenopausal woman: yes Take estrogen and/or progesterone medications: no Lost more than 2 inches in height since high school: no Frequent falls: no Poor Health: good Hyperparathyroidism: no Adrenal Insufficiency: no MEDICATIONS: Additional Medications: none Additional History: EXAM MEASUREMENTS: Bone mineral densitometry was performed using the [employer] System. Bone mineral density as measured about the Lumbar spine is: ----- L1-L4(G/cm2): 1.207 T Score Values are as follows: ----- L1: -1.1 ----- L2: -0.3 ----- L3: 0.7 ----- L4: 0.9 ----- L1-L4: 0.2 Z Score Values are as follows: ----- L1: 0.8 ----- L2: 1.5 ----- L3: 2.5 ----- L4: 2.7 ----- L1-L4: 2.1 Bone mineral density has: decreased -0.3 % since study of: 2020 Bone mineral density about the L hip (g/cm2): 0.831 T Score values are as follows: -----L Neck: -1.5 -----L Total: -2.4 Z Score values are as follows: -----L Neck: 0.4 -----L Total: -0.7 Bone mineral density has: decreased -5.0 % since study of: 2020 FRAX%s: The graph provided illustrates a 24.0 % chance for a major osteoporotic fx and a 8.9 % chance for the hips probability for fx in 10 years time. IMPRESSION: Osteopenia (T Score between -2.5 and -1). There is slightly increased risk of fracture and the patient may be considered for treatment. Re-Screen 2-5 years. NOTE: T-SCORE=SD OF THE YOUNG ADULT MEAN.
== END | disposition home or self-care (01) ==
LOC: RADMAMWWP 14:56
PROVIDERS: ATTEND Obstetrics & Gynecology
DX: M81.0 Age-related osteoporosis without current pathological fracture (principal); M85.89 Other specified disorders of bone density and structure, multiple sites; R92.333 Mammographic heterogeneous density, bilateral breasts; Z78.0 Asymptomatic menopausal state; Z80.3 Family history of malignant neoplasm of breast
CPT/HCPCS: 77080; 77066; G0279; 77062

== ENCOUNTER → 2024-02-27 | Outpatient (CLI) | payer MEDICARE ==
--- NOTE | 2024-02-27 14:38 | MM ---
Reason for Exam: Hx of benign breast biopsy. Last screening mammogram was performed 12 month(s) ago. Patient History: Menarche at age 11. Patient has no children. Postmenopausal. Hormonal Contraceptives, starting at age 19 for 14 years. 1979, Excisional Biopsy on the Right side. 09/26/2020, Benign Core Biopsy on the right side. 01/08/2011, Benign Core Biopsy on the left side. 03/01/2004, Benign Stereotactic Core Biopsy on the right side. Maternal aunt had breast cancer, age 60. Maternal aunt had breast cancer, age 65. Mother had breast cancer, age 50. Risk Values: Leonela 5 year model risk: 5.2%. NCI Lifetime model risk: 11.6%. Tissue Density: The breasts are extremely dense, which lowers the sensitivity of mammography. Findings: Analyzed By CAD. The pattern is symmetrical. There are chronic calcifications adjacent to the biopsy clip in the upper outer left breast. No increasing calcifications evident. Additional scattered core markers are present bilaterally. No significant change is evident. No suspicious groups of microcalcifications, spiculated or lobular masses, architectural distortion or other secondary signs of malignancy are mammographically apparent. Overall Assessment: Benign, BI-RAD 2 Management: Screening Mammogram of both breasts in 1 year. A negative mammogram report should not preclude additional follow up of suspicious palpable abnormalities. Patient should continue monthly self breast exam. A clinical breast exam by your physician is recommended on an annual basis and results should be correlated with mammographic findings. Note on Leonela scores and lifetime risk: 1. A Leonela score greater than 3% is considered moderate risk. If this is the case, consider specialist referral to assess eligibility for a risk reducing agent. 2. If overall lifetime risk for the development of breast cancer is 20% or higher, the patient may qualify for future screening with alternating mammogram and breast MRI. [facility], , 02/27/2024 2:34 PM. Electronically signed and approved by: Clifford Sanon D.O. Radiologis
== END | disposition home or self-care (01) ==
LOC: RADMAMWWP 13:43
PROVIDERS: ATTEND Internal Medicine
DX: R92.8 Other abnormal and inconclusive findings on diagnostic imaging of breast (principal); Z78.0 Asymptomatic menopausal state; Z80.3 Family history of malignant neoplasm of breast; R92.343 Mammographic extreme density, bilateral breasts
CPT/HCPCS: 77066; G0279; 77062

== ENCOUNTER → 2024-03-17 | Outpatient (CLI) | payer MEDICARE ==
[2024-03-17 13:30] VITALS: BP 119/77; PULSE 77; RESP 16; TEMP 98.1
--- NOTE | 2024-03-17 14:27 | P.HPOB ---
History of Present Illness H&P Date: 03/17/24 Chief Complaint: The patient is here for her routine gynecologic exam. This is a 73-year-old -0-2-0 with an LMP of 2003. The patient is here to establish with this office. She previously saw Dr. Thomason for her gynecologic care. She was last seen by him about 1 year ago. She has records from his office, but she did not bring them today. She is without gynecologic complaints and denies any postmenopausal bleeding. She had a diagnostic mammogram earlier this month and this was benign. Review of Systems The patient's weight has been stable over the last year. She denies respiratory, cardiac, or G.I. problems. Past Medical History Past Medical History: Cancer, Mitral Valve Prolapse (MVP) Additional Past Medical History / Comment(s): melanoma(mueller and arm). Osteope gema. 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 History of Any Multi-Drug Resistant Organisms: None Reported Past Surgical History: Appendectomy, Breast Surgery, Joint Replacement Additional Past Surgical History / Comment(s): COLONOSCOPY 2016. BILAT BREAST NEEDLE BIOPSY. RT BREAST BENIGN EXCISIONAL BIOPSY. Right hip replacement 07/25/20. VTP Past Anesthesia/Blood Transfusion Reactions: Postoperative Nausea & Vomiting (PONV) Past Psychological History: No Psychological Hx Reported Smoking Status: Former smoker Past Alcohol Use History: Occasional (3 or 4 drinks per week.) Additional Past Alcohol Use History / Comment(s): QUIT SMOKING 2006,smoked approx 25 yrs-1ppd Past Drug Use History: None Reported Additional History: She has been a since 1984. She has not been sexually active for several years. She is retired. - Past Family History Mother Family Medical History: Cancer, Dementia, Deep Vein Thrombosis (DVT), Hyperlipidemia, Hypertension Additional Family Medical History / Comment(s): Breast cancer. . 2 Maternal aunts also had breast cancer. Father Family Medical History: COPD Additional Family Medical History / Comment(s): . Medications and Allergies Home Medications Medication Instructions Recorded Confirmed Type Calcium Carb/Vitamin D3/Vit K1 1 tab PO DAILY 02/08/17 09/26/20 History [Citracal-D3 500 mg Soft Chew] Black Elderberry Gummie 1 dose PO DAILY 04/23/18 09/26/20 History Multivitamin [Multivitamins Adult 2 each PO DAILY 04/23/18 09/26/20 History Gummies] Ascorbic Acid [Vitamin C] 125 mg PO DAILY 07/18/20 09/26/20 History Biotin [Eeqp-Fwib-Chocu] 1 tab PO DAILY 03/17/24 03/17/24 History Allergies Allergy/AdvReac Type Severity Reaction Status Date / Time adhesive tape Allergy skin turns Verified 03/17/24 13:27 red topical soaps Allergy sensitive Uncoded 03/17/24 13:27 skin Exam Vital Signs Temp Pulse Resp BP Pulse Ox 03/17/24 13:28 98.1 F 77 16 119/77 97 Intake and Output 03/16/24 03/17/24 03/17/24 22:59 06:59 14:59 Other: Weight 62.596 kg Height 5 feet 6 inches, weight 138 pounds, BMI 22.3. This is a well-developed well-nourished white female who is alert and oriented times 3 in no acute distress. HEENT: Within normal limits. NECK: Supple without mass or thyromegaly. CHEST AND LUNGS: Clear to auscultation. HEART: Regular rate and rhythm. BREASTS: Are without mass or discharge. AXILLARY EXAM: Negative for adenopathy. BACK: Negative for CVA tenderness. ABDOMEN: Soft, nontender, without palpable masses. PELVIC EXAM: Normal external genitalia with mild to moderate atrophy. Cervix and vagina appear normal with mild atrophy. There is no unusual discharge. There is no evidence of prolapse. The uterus is midposition, nongravid size and nontender. There are no palpable adnexal masses or tenderness. RECTAL EXAM: Rectovaginal exam is negative for mass or tenderness and is negative for occult blood. EXTREMITIES: Nontender. IMPRESSION: 1. 73-year-old menopausal female with normal gynecologic exam. 2. Strong family history of breast cancer in her mother and 2 maternal aunts. 3. History of osteopenia. The patient states she used Fosamax very briefly in the past. PLAN: 1. Pap smear was performed. She states she has been regularly screened for many years and has never had needed treatment for cervical neoplasia. If this Pap smear is negative, we will discontinue Pap smears. 2. Self breast awareness was discussed with the patient. We have also discussed symptoms associated with inflammatory breast cancer. 3. Diagnostic mammogram was recently done on 02/27/2024 and was benign. 4. Osteoporosis prevention was discussed. I have stressed the importance of adequate calcium, vitamin D and regular exercise. Recommended amounts of calcium and vitamin D were also discussed. We will plan on repeating the bone density test in 1 year. 5. Because of her strong family history of breast cancer, I have offered her genetic cancer screening. After long discussion about this, she is declining this type of counseling and testing she will let me know if she changes her mind about this. 6. She had a Cologuard test done in 2022. She will discuss her options for colorectal cancer screening with her PCP. 7. She was advised to return in one year for her annual well woman exam.
== END ==
LOC: WWCWWP 13:12
PROVIDERS: ATTEND Obstetrics & Gynecology
DX: Z01.419 Encounter for gynecological examination (general) (routine) without abnormal findings (principal); M85.80 Other specified disorders of bone density and structure, unspecified site; Z91.048 Other nonmedicinal substance allergy status; Z88.9 Allergy status to unspecified drugs, medicaments and biological substances; Z80.3 Family history of malignant neoplasm of breast; Z87.891 Personal history of nicotine dependence